=== PATIENT | female | born 1955 | race Caucasian/White ===

== ENCOUNTER 2018-10-11 19:14 | Inpatient (IN) | payer MEDICARE ==
[2018-10-11] MEDS ORDERED: HYDROcodone/Acetaminophen 5/325 mg Tablet PO PRN (20:46)
[2018-10-11] MEDS: Pregabalin 75 MG CAP PO SCH (21:05)
[2018-10-11] MEDS: traZODone HCl 50 MG TAB PO SCH (21:06)
[2018-10-11] MEDS: HYDROcodone/Acetaminophen 5/325 mg Tablet PO PRN (21:06)
[2018-10-11] MEDS: Lorazepam 0.5 MG TAB PO PRN (21:10)
[2018-10-12] MEDS: HYDROcodone/Acetaminophen 5/325 mg Tablet PO PRN ×5 (03:16→22:05)
[2018-10-12] MEDS: Levothyroxine Sodium 75 MCG TAB PO SCH (05:08)
[2018-10-12 05:42] LABS: Band 2 % (5-11); Eosinophils 6 % (0-10); Hemoglobin 7.5 g/dL (12.0-16.0); Hypochromia MODERATE=16-30 cells (100X) (0-5/hpf); Lymphocytes 22 % (21-51); MDiff Complete? YES; Mean Corpuscular Hemoglobin 21.5 pg (27.0-31.0); Mean Corpuscular Volume 71.8 fL (78.0-98.0); Mean Platelet Volume 7.3 fL (7.4-10.4); Microcytosis MODERATE=15-30 cells (100X) (0-5/hpf); Monocytes 6 % (0-10); Neutrophil 64 % (42-75); Platelet Count 197 thou/uL (130-400); Platelet Morphology Comment Appears Adequate; RBC Distribution Width 20.8 % (11.5-14.5); Red Blood Cell (RBC) Count 3.48 mill/uL (4.20-5.40); Target Cells MODERATE= 6-15 cells (100X) (0-1/hpf); White Blood Cell (WBC) Count 4.1 thou/uL (4.8-10.8)
[2018-10-12 05:45] LABS: ALT (SGPT) 20 U/L (8-55); AST (SGOT) 22 U/L (5-34); Albumin 2.4 g/dL (3.4-4.8); Alkaline Phosphatase 139 U/L (40-150); Anion Gap 11 mmol/L (10-20); BUN (Urea Nitrogen) 14 mg/dL (9.8-20.1); Bilirubin, Total 0.5 mg/dL (0.2-1.2); Calc. Creatinine Clearance 98 mL/min (70-130); Calcium 7.8 mg/dL (7.8-10.44); Carbon Dioxide 27 mmol/L (23-31); Chloride 107 mmol/L (98-107); Estimated GFR-MDRD Greater than 90; Globulin 2.5 g/dL (2.4-3.5); Glucose 97 mg/dL (80-115); Potassium 3.4 mmol/L (3.5-5.1); Protein, Total 4.9 g/dL (6.0-8.3); Sodium 142 mmol/L (136-145)
[2018-10-12] MEDS: Furosemide 20 MG TAB PO SCH (08:00)
[2018-10-12] MEDS: DULoxetine 30 MG CAP PO SCH (08:01)
[2018-10-12] MEDS: Pregabalin 75 MG CAP PO SCH ×2 (08:01→20:28)
[2018-10-12] MEDS: Amlodipine 5 MG TAB PO SCH (08:03)
[2018-10-12] MEDS: Lorazepam 0.5 MG TAB PO PRN ×2 (08:05→20:29)
[2018-10-12] MEDS: Nystatin Cream 15 GM TUBE TOP SCH (08:07)
[2018-10-12] MEDS ORDERED: Potassium Chloride 20 MEQ TAB PO SCH (14:15)
--- NOTE | 2018-10-12 16:43 | HP ---
Date of Examination: 10/12/2018 CHIEF COMPLAINT: Recent admission to the hospital for pleural effusion, requiring thoracoscopy and drainage, now with extreme deconditioning for therapy. BRIEF HISTORY: This is a pleasant 63-year-old female, who presented to [facility] with weakness, frequent falls, and shortness of breath. She was diagnosed with a complex right pleural effusion and was transferred from [facility] to [facility]. She underwent thoracoscopy and drainage with not much improvement, but all the workup was negative for infection and her antibiotics were discontinued. She remained profoundly weak and was felt to be a candidate for therapy and so transferred [facility]. Currently, she states that the breathing is improving and she does not seem to be in any distress. She does have some sharp pain with inspiration. She is not on oxygen. PAST MEDICAL HISTORY: 1. Cirrhosis with history of portacaval shunt. 2. Loculated pleural effusion, status post thoracoscopy and drainage. 3. Hypothyroidism. 4. Dyslipidemia. 5. Hypertension. 6. Anemia, likely due to acute blood loss, status post transfusion. PAST SURGICAL HISTORY: 1. Thyroidectomy. 2. Left hip replacement. 3. Lumbar laminectomy. 4. Left shoulder rotator cuff repair. 5. Possible TIPS type of procedure for portal hypertension. 6. Left AKA. ALLERGIES: ASPIRIN, MAXIPIME, MOTRIN, AND PENICILLIN. MEDICATIONS: She has been transferred here on the following medications. 1. [place] 5/325 one to two tabs q.4 p.r.n. 2. DuoNeb 3 mL q.6 p.r.n. 3. Norvasc 2.5 mg daily. 4. Cymbalta 30 mg daily. 5. Lasix 20 mg daily. 6. Levoxyl 75 mcg daily. 7. Ativan 0.5 mg t.i.d. p.r.n. 8. Protonix 40 mg b.i.d. 9. Lyrica 75 mg b.i.d. 10. Desyrel 100 mg at bedtime. FAMILY HISTORY: Positive for CVA in her father and internal bleeding in her mother, unknown etiology. REVIEW OF SYSTEMS: CARDIOVASCULAR: Denies any chest pain, shortness of breath, palpitations, PND, orthopnea, or pedal edema. RESPIRATORY: Denies any chronic cough or expectoration. Does have some pleuritic type chest pain. Denies any hemoptysis. GASTROINTESTINAL: Denies any nausea, vomiting, diarrhea, constipation, hematemesis, melena, or hematochezia. GENITOURINARY: Denies any frequency, urgency, dysuria, or hematuria. CENTRAL NERVOUS SYSTEM: Does have some phantom pain. Generalized weakness. No focal numbness or seizure-like activity. HEENT: Denies any changes with vision, hearing, or swallowing. SKIN: Denies any rash. EXTREMITIES: Phantom pain to the left amputated leg. PHYSICAL EXAMINATION: GENERAL: This is a 63-year-old female, who is resting comfortably in bed, and denies any concerns. VITAL SIGNS: She is afebrile. Heart rate is 69, respirations 18, oxygen saturation 96% on room air, and blood pressure 128/61. CARDIOVASCULAR: S1 and S2 plus. RESPIRATORY: Normal vesicular breath sounds. ABDOMEN: Soft, nontender. Bowel sounds heard in all quadrants. EXTREMITIES: Without cyanosis or clubbing. Left AKA. CENTRAL NERVOUS SYSTEM: Awake and responsive. Generalized weakness. Grossly nonfocal. LABORATORY VALUES: White count is 4.1, H and H are 7.5 and 25. Sodium 142, potassium 3.4, BUN and creatinine are 14 and 0.62. Previous results show hemoglobin of 8.3 on 10/10, 6.8 on 10/09, 7.4 on 10/08, and 7.9 on 10/07. Potassium has been 3.3 on 10/10, 3.2 on 10/09, 3.2 on 10/08, and 3.7 on 10/07. IMPRESSION: 1. Complex pleural effusion, status post thoracoscopy and drainage, not infectious. 2. Acute blood loss requiring blood transfusion. 3. Hypertension. 4. Dyslipidemia. 5. Cirrhosis. 6. Hypokalemia. 7. Left [id number] amputation. 8. Deconditioning. 9. History of gastrointestinal bleed. 10. History of diastolic dysfunction. PLAN: 1. Continue discharge medications. 2. Replace potassium. 3. Heart healthy diet. 4. DVT prophylaxis with PlexiPulses. 5. Decubitus precaution. 6. Stress ulcer prophylaxis. She is on Protonix b.i.d. 7. Monitor hemoglobin. 8. PT/OT eval and treat. 9. Discussed with the patient in detail and all questions answered. Job ID: [id number] [facility]
[2018-10-12] MEDS: traZODone HCl 50 MG TAB PO SCH (20:29)
[2018-10-13] MEDS: HYDROcodone/Acetaminophen 5/325 mg Tablet PO PRN ×5 (02:46→20:55)
[2018-10-13] MEDS: Levothyroxine Sodium 75 MCG TAB PO SCH (05:21)
[2018-10-13 05:40] LABS: #Eosinphils 0.3 thou/uL (0.0-0.7); #Lymphocytes 0.6 thou/uL (1.20-3.40); #Monocytes 0.4 thou/uL (0.11-0.59); %Basophils 1.1 % (0.0-1.0); %Lymphocytes 14.2 % (21.0-51.0); %Neutrophils 68.7 % (42.0-75.0); Hemoglobin 7.4 g/dL (12.0-16.0); Hypochromia MODERATE=16-30 cells (100X) (0-5/hpf); MDiff Complete? YES; Mean Corpuscular HGB CONC 29.8 g/dL (32.0-36.0); Mean Corpuscular Hemoglobin 21.6 pg (27.0-31.0); Mean Corpuscular Volume 72.5 fL (78.0-98.0); Mean Platelet Volume 6.6 fL (7.4-10.4); Microcytosis SLIGHT = 6-15 cells (100X) (0-5/hpf); Ovalocytes SLIGHT = 2-5 cells (100X) (0-1/hpf); Platelet Count 206 thou/uL (130-400); Platelet Morphology Comment Appears Adequate; RBC Distribution Width 21.3 % (11.5-14.5); White Blood Cell (WBC) Count 4.3 thou/uL (4.8-10.8)
[2018-10-13 05:45] LABS: Anion Gap 12 mmol/L (10-20); BUN (Urea Nitrogen) 11 mg/dL (9.8-20.1); Calc. Creatinine Clearance 87 mL/min (70-130); Calcium 7.9 mg/dL (7.8-10.44); Carbon Dioxide 26 mmol/L (23-31); Chloride 106 mmol/L (98-107); Estimated GFR-MDRD 84; Glucose 110 mg/dL (80-115); Potassium 3.6 mmol/L (3.5-5.1); Sodium 140 mmol/L (136-145)
[2018-10-13] MEDS: Nystatin Cream 15 GM TUBE TOP SCH ×3 (06:01→21:02)
[2018-10-13] MEDS: Furosemide 20 MG TAB PO SCH (08:34)
[2018-10-13] MEDS: Lorazepam 0.5 MG TAB PO PRN ×2 (08:34→20:54)
[2018-10-13] MEDS: DULoxetine 30 MG CAP PO SCH (08:35)
[2018-10-13] MEDS: Potassium Chloride 10 MEQ TAB PO SCH (08:35)
[2018-10-13] MEDS: Pregabalin 75 MG CAP PO SCH ×2 (08:35→20:53)
[2018-10-13] MEDS: Amlodipine 5 MG TAB PO SCH (08:36)
--- NOTE | 2018-10-13 14:29 | PRG ---
DATE OF SERVICE: 10/13/2018 SUBJECTIVE: Ms. Lewis is up in her chair and is waiting on therapy. She denies any concerns or questions. No family at bedside. OBJECTIVE: VITAL SIGNS: She is afebrile, heart rate 74, respirations 16, oxygen saturation 96% on room air, and blood pressure 137/62. CARDIOVASCULAR: S1 and S2 plus. RESPIRATORY: Normal vesicular breath sounds. ABDOMEN: Soft, nontender. Bowel sounds heard in all quadrants. EXTREMITIES: Without cyanosis, clubbing. Left AKA. CENTRAL NERVOUS SYSTEM: Awake and responsive. Generalized weakness. LABORATORY VALUES: White count is 4.3, H and H are 7.4 and 24.6, pretty much the same. Sodium 140, potassium 3.6, BUN and creatinine are 11 and 0.7. IMPRESSION: 1. Resolved hypokalemia. 2. Anemia, stable. 3. Pleural effusion, status post thoracoscopy and drainage. 4. Cirrhosis. 5. Dyslipidemia. 6. Hypertension. PLAN: 1. Continue current medications. 2. Heart healthy diet. 3. Monitor for any signs or symptoms of bleeding. 4. Physical therapy. 5. Routine laboratory values. 6. Monitor respiratory status. 7. Discussed with the patient in detail. All questions were answered. Job ID: [id number]
[2018-10-13] MEDS: traZODone HCl 50 MG TAB PO SCH (20:56)
[2018-10-14] MEDS: HYDROcodone/Acetaminophen 5/325 mg Tablet PO PRN ×4 (03:19→19:36)
[2018-10-14] MEDS: Levothyroxine Sodium 75 MCG TAB PO SCH (06:03)
[2018-10-14] MEDS: DULoxetine 30 MG CAP PO SCH (08:18)
[2018-10-14] MEDS: Pregabalin 75 MG CAP PO SCH ×2 (08:18→21:12)
[2018-10-14] MEDS: Furosemide 20 MG TAB PO SCH (08:18)
[2018-10-14] MEDS: Potassium Chloride 10 MEQ TAB PO SCH (08:18)
[2018-10-14] MEDS: Amlodipine 5 MG TAB PO SCH (08:18)
[2018-10-14] MEDS: Nystatin Cream 15 GM TUBE TOP SCH ×2 (08:24→21:11)
--- NOTE | 2018-10-14 10:00 | PRG ---
DATE OF SERVICE: 10/14/2018 SUBJECTIVE: Ms. Lewis is doing the same. She denies any concerns. She still continues to have some pain in the left chest wall. She states that she was unable to wear her prosthesis. 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 We will check with occupational therapy and see if they can provide her one. OBJECTIVE: VITAL SIGNS: She is afebrile. Heart rate 68, respirations 16, oxygen saturation 96% on room air, and blood pressure 123/55. CARDIOVASCULAR SYSTEM: S1 and S2 plus. RESPIRATORY SYSTEM: Normal vesicular breath sounds. ABDOMEN: Soft and nontender. Bowel sounds heard in all quadrants. EXTREMITIES: Without cyanosis or clubbing. Left AKA. CENTRAL NERVOUS SYSTEM: Awake and responsive. Generalized weakness. IMPRESSION: 1. Dyslipidemia. 2. Hypertension. 3. Cirrhosis. 4. Pleural effusion, status post thoracoscopy and drainage. 5. Anemia, due to chronic disease. 6. Deconditioning. 7. Status post left above-knee amputation. PLAN: 1. Continue current medications. 2. Heart healthy diet. 3. PT/OT eval and treat. 4. DVT prophylaxis with PlexiPulses. 5. Decubitus precautions. 6. Routine laboratory values. 7. Discussed with the patient in detail. All questions answered. Job ID: [id number]
[2018-10-14] MEDS: traZODone HCl 50 MG TAB PO SCH (21:12)
[2018-10-14] MEDS: Lorazepam 0.5 MG TAB PO PRN (21:13)
[2018-10-15] MEDS: Levothyroxine Sodium 75 MCG TAB PO SCH (05:25)
[2018-10-15] MEDS: HYDROcodone/Acetaminophen 5/325 mg Tablet PO PRN ×3 (05:25→18:17)
[2018-10-15 05:50] LABS: Anion Gap 14 mmol/L (10-20); BUN (Urea Nitrogen) 11 mg/dL (9.8-20.1); Calc. Creatinine Clearance 91 mL/min (70-130); Calcium 8.2 mg/dL (7.8-10.44); Carbon Dioxide 25 mmol/L (23-31); Chloride 106 mmol/L (98-107); Estimated GFR-MDRD 89; Glucose 93 mg/dL (80-115); Potassium 3.9 mmol/L (3.5-5.1); Sodium 141 mmol/L (136-145)
[2018-10-15 05:59] LABS: #Eosinphils 0.3 thou/uL (0.0-0.7); #Lymphocytes 0.7 thou/uL (1.20-3.40); #Monocytes 0.4 thou/uL (0.11-0.59); #Neutrophils 2.3 thou/uL (1.40-6.50); %Basophils 1.1 % (0.0-1.0); %Lymphocytes 17.8 % (21.0-51.0); %Monocytes 9.5 % (0.0-10.0); %Neutrophils 63.7 % (42.0-75.0); Elliptocytes SLIGHT = 2-5 cells (100X) (0-1/hpf); Hemoglobin 7.8 g/dL (12.0-16.0); Hypochromia MODERATE=16-30 cells (100X) (0-5/hpf); MDiff Complete? YES; Mean Corpuscular HGB CONC 29.9 g/dL (32.0-36.0); Mean Corpuscular Hemoglobin 21.6 pg (27.0-31.0); Mean Corpuscular Volume 72.3 fL (78.0-98.0); Mean Platelet Volume 6.9 fL (7.4-10.4); Microcytosis SLIGHT = 6-15 cells (100X) (0-5/hpf); Platelet Count 216 thou/uL (130-400); Platelet Morphology Comment Appears Adequate; RBC Distribution Width 20.9 % (11.5-14.5); Red Blood Cell (RBC) Count 3.63 mill/uL (4.20-5.40); White Blood Cell (WBC) Count 3.6 thou/uL (4.8-10.8)
[2018-10-15] MEDS: Amlodipine 5 MG TAB PO SCH (08:06)
[2018-10-15] MEDS: DULoxetine 30 MG CAP PO SCH (08:07)
[2018-10-15] MEDS: Potassium Chloride 10 MEQ TAB PO SCH (08:07)
[2018-10-15] MEDS: Pregabalin 75 MG CAP PO SCH ×2 (08:07→20:49)
[2018-10-15] MEDS: Nystatin Cream 15 GM TUBE TOP SCH ×2 (08:08→20:52)
[2018-10-15] MEDS: Furosemide 20 MG TAB PO SCH (08:08)
--- NOTE | 2018-10-15 15:04 | PRG ---
DATE OF SERVICE: 10/15/2018 SUBJECTIVE: Ms. Lewis is doing well. She was noted to have episodes of confusion, and problems with coordination yesterday and nursing felt like that was due to narcotic overdose. The patient apparently wants to be woken up to be given her pain medicines every 4 hours. I advised nursing to change it every 6 and monitor her closely and even it is 6 hours, if they were noticing signs of confusion, then to not give her the pain medicine. I had a long discussion with the patient and explained my rationale. She was not happy, but she nodded understanding. No family at bedside. OBJECTIVE: VITAL SIGNS: She is afebrile, heart rate 85, respirations 18, and oxygen saturation 92% on room air. CARDIOVASCULAR SYSTEM: S1-S2 plus. RESPIRATORY SYSTEM: Normal vesicular breath sounds. ABDOMEN: Soft and nontender. Bowel sounds heard in all quadrants. EXTREMITIES: Without cyanosis or clubbing. Left AKA. CENTRAL NERVOUS SYSTEM: Awake and responsive. Generalized weakness. No asterixis. LABORATORY VALUES: Show a normal ammonia level. Her white count is 3.6; H and H are 7.8 and 26.2, improving. Sodium 141, potassium 3.9, and BUN and creatinine are 11 and 0.67. IMPRESSION: 1. Pleural effusion, status post thoracoscopy and drainage. 2. Chronic pain, but with evidence of buildup of narcotics in her system, so drug frequency has been reduced to q.6. 3. Dyslipidemia. 4. Hypertension. 5. History of cirrhosis. 6. Anemia of chronic disease. 7. Deconditioning. 8. Status post left above-knee amputation. PLAN: 1. Continue current medications. 2. Heart healthy diet. 3. PT and OT eval and treat. 4. DVT prophylaxis with PlexiPulses. 5. Monitor cognition and neuro status and hold narcotics if there are any signs of narcotic buildup. 6. Discussed with the patient and nursing. Job ID: [id number]
[2018-10-15] MEDS: traZODone HCl 50 MG TAB PO SCH (20:49)
[2018-10-16] MEDS: HYDROcodone/Acetaminophen 5/325 mg Tablet PO PRN ×4 (01:05→22:04)
[2018-10-16] MEDS: Levothyroxine Sodium 75 MCG TAB PO SCH (05:44)
[2018-10-16 06:09] VITALS: BMI 241799.2
[2018-10-16] MEDS: Nystatin Cream 15 GM TUBE TOP SCH ×2 (08:16→20:22)
[2018-10-16] MEDS: Pregabalin 75 MG CAP PO SCH ×2 (08:17→20:19)
[2018-10-16] MEDS: DULoxetine 30 MG CAP PO SCH (08:18)
[2018-10-16] MEDS: Furosemide 20 MG TAB PO SCH (08:18)
[2018-10-16] MEDS: Potassium Chloride 10 MEQ TAB PO SCH (08:18)
[2018-10-16] MEDS: Amlodipine 5 MG TAB PO SCH (08:18)
[2018-10-16] MEDS: Lorazepam 0.5 MG TAB PO PRN (10:24)
--- NOTE | 2018-10-16 15:59 | PRG ---
DATE OF SERVICE: 10/16/2018 SUBJECTIVE: Ms. Lewis is getting used to the q.6 hours [place]. She apparently is functioning better, and she states that she actually is not getting as confused or somnolent. No family at bedside. OBJECTIVE: VITAL SIGNS: She is afebrile, heart rate 72, respirations 18, oxygen saturation 95% on room air, and blood pressure 146/63. CARDIOVASCULAR SYSTEM: S1 and S2 plus. RESPIRATORY SYSTEM: Normal vesicular breath sounds. ABDOMEN: Soft, nontender. Bowel sounds heard in all quadrants. EXTREMITIES: Without cyanosis or clubbing. Left AKA. CENTRAL NERVOUS SYSTEM: Awake and responsive. Generalized weakness. IMPRESSION: 1. Pleural effusion, status post thoracoscopy and drainage. 2. Status post left hamvq-uwv-mmil amputation. 3. Hypothyroidism. 4. Dyslipidemia. 5. Hypertension. 6. Chronic pain. 7. History of cirrhosis. PLAN: 1. Continue current medications. 2. Nutritional support. 3. Pain control. 4. DVT and stress ulcer prophylaxis. 5. Decubitus precautions. 6. Physical therapy. 7. Routine laboratory values. Job ID: [id number]
[2018-10-16] MEDS: traZODone HCl 50 MG TAB PO SCH (20:19)
[2018-10-17] MEDS: Levothyroxine Sodium 75 MCG TAB PO SCH (05:26)
[2018-10-17] MEDS: HYDROcodone/Acetaminophen 5/325 mg Tablet PO PRN ×3 (05:27→18:01)
[2018-10-17] MEDS: Furosemide 20 MG TAB PO SCH (08:16)
[2018-10-17] MEDS: Amlodipine 5 MG TAB PO SCH (08:17)
[2018-10-17] MEDS: Potassium Chloride 10 MEQ TAB PO SCH (08:17)
[2018-10-17] MEDS: DULoxetine 30 MG CAP PO SCH (08:17)
[2018-10-17] MEDS: Pregabalin 75 MG CAP PO SCH ×2 (08:18→20:32)
[2018-10-17] MEDS: Nystatin Cream 15 GM TUBE TOP SCH ×2 (08:18→20:31)
--- NOTE | 2018-10-17 13:53 | PRG ---
DATE OF SERVICE: 10/17/2018 HISTORY OF PRESENT ILLNESS: Ms. Lewis is doing well. Denies any complaints. Resting comfortably. Still complaining of some sharp, stabbing pain in her chest wall area. She is tolerating the [place] every 6 hours. OBJECTIVE: VITAL SIGNS: She is afebrile. Heart rate 62, respirations 18, oxygen saturation 94% on room air, and blood pressure 146/62. CARDIOVASCULAR: S1 and S2 plus. RESPIRATORY: Normal vesicular breath sounds. ABDOMEN: Soft, nontender. Bowel sounds heard in all quadrants. EXTREMITIES: Without cyanosis or clubbing. Left AKA. IMPRESSION: 1. Pleural effusion, status post thoracoscopy and drainage. 2. History of left above-knee amputation. 3. Hypothyroidism. 4. Dyslipidemia. 5. Hypertension. 6. Chronic pain. PLAN: 1. Trial of meloxicam 7.5 mg daily for pleurisy. 2. Continue other medications. 3. Nutritional support. 4. DVT and stress ulcer prophylaxis. 5. Decubitus precautions. 6. Routine laboratory values. 7. Continue physical therapy. 8. Discussed with the patient and nursing. Job ID: [id number]
[2018-10-17] MEDS: traZODone HCl 50 MG TAB PO SCH (20:32)
[2018-10-17] MEDS: Nystatin Powder 15 GM BOT TOP SCH (20:33)
[2018-10-17] MEDS: Lorazepam 0.5 MG TAB PO PRN (22:15)
[2018-10-18] MEDS: HYDROcodone/Acetaminophen 5/325 mg Tablet PO PRN ×4 (01:15→20:23)
[2018-10-18] MEDS: Levothyroxine Sodium 75 MCG TAB PO SCH (05:25)
[2018-10-18] MEDS: Potassium Chloride 10 MEQ TAB PO SCH (07:43)
[2018-10-18] MEDS: Furosemide 20 MG TAB PO SCH (07:45)
[2018-10-18] MEDS: Amlodipine 5 MG TAB PO SCH (09:13)
[2018-10-18] MEDS: DULoxetine 30 MG CAP PO SCH (09:13)
[2018-10-18] MEDS: Pregabalin 75 MG CAP PO SCH ×2 (09:14→20:21)
[2018-10-18] MEDS: Nystatin Powder 15 GM BOT TOP SCH ×2 (09:14→20:20)
[2018-10-18] MEDS: Nystatin Cream 15 GM TUBE TOP SCH ×2 (09:20→20:20)
[2018-10-18] MEDS: Lorazepam 0.5 MG TAB PO PRN (12:07)
--- NOTE | 2018-10-18 13:19 | PRG ---
DATE OF SERVICE: 10/18/2018 SUBJECTIVE: Ms. Lewis is doing the same. Denies any complaints. Resting comfortably in bed, just finished her lunch. Nystatin powder seems to be helping. Discussed with nursing. OBJECTIVE: VITAL SIGNS: She is afebrile, heart rate 71, respirations 16, oxygen saturation 95% on room air, and blood pressure 129/60. CARDIOVASCULAR SYSTEM: S1 and S2 plus. RESPIRATORY SYSTEM: Normal vesicular breath sounds. ABDOMEN: Soft, nontender. Bowel sounds heard in all quadrants. EXTREMITIES: Left AKA. CENTRAL NERVOUS SYSTEM: Awake and responsive. Generalized weakness. IMPRESSION: 1. Pleural effusion, status post thoracoscopy and drainage. 2. Hypothyroidism. 3. Dyslipidemia. 4. Hypertension. 5. Chronic pain. 6. History of left above-knee amputation. PLAN: 1. I did not start her on meloxicam yesterday since she is apparently allergic to all NSAIDs, and it causes GI bleed. 2. Continue current medications. 3. Continue PT and OT. 4. Nutritional support. 5. Routine laboratory values. 6. The patient states that she has [facility] and they do therapy at home, so we will wait for therapy to tell me she is stable for discharge and will also get Case Management involved. Job ID: [id number]
[2018-10-18] MEDS: traZODone HCl 50 MG TAB PO SCH (20:20)
[2018-10-19] MEDS: Lorazepam 0.5 MG TAB PO PRN ×2 (00:45→08:30)
[2018-10-19] MEDS: Levothyroxine Sodium 75 MCG TAB PO SCH (05:45)
[2018-10-19] MEDS: HYDROcodone/Acetaminophen 5/325 mg Tablet PO PRN ×2 (05:45→15:39)
[2018-10-19 07:58] VITALS: BP 193/74; TEMP 98.5
[2018-10-19] MEDS: Furosemide 20 MG TAB PO SCH (08:21)
[2018-10-19] MEDS: Pregabalin 75 MG CAP PO SCH (08:21)
[2018-10-19] MEDS: DULoxetine 30 MG CAP PO SCH (08:22)
[2018-10-19] MEDS: Nystatin Cream 15 GM TUBE TOP SCH (08:22)
[2018-10-19] MEDS: Potassium Chloride 10 MEQ TAB PO SCH (08:22)
[2018-10-19] MEDS: Nystatin Powder 15 GM BOT TOP SCH (08:22)
[2018-10-19] MEDS: Amlodipine 5 MG TAB PO SCH (08:22)
--- NOTE | 2018-10-20 10:43 | DIS ---
DATE OF ADMISSION: 10/11/2018 DATE OF DISCHARGE: 10/19/2018 PRINCIPAL DIAGNOSES: 1. Pleural effusion status post thoracoscopy and drainage. 2. Hypothyroidism. 3. Dyslipidemia. 4. Hypertension. 5. Possible cirrhosis. 6. Anemia due to acute blood loss, status post transfusion, stable since admission here. COMPLICATIONS: None. ADVERSE REACTIONS: None. PROCEDURES: None. CONSULTATIONS: Physical Therapy and Occupational Therapy. HOSPITAL COURSE: The patient was admitted as a transfer from [facility], where she was admitted with frequent falls, weakness, and shortness of breath. She was diagnosed with a complex right pleural effusion and underwent thoracoscopy and drainage without much improvement. Workup was negative for infection. Her antibiotics were discontinued. She was felt to be weak and a candidate for therapy and so transferred here. Here, she has been participating with therapy and has been deemed stable for discharge to home with home health. She does have a prosthesis for her left AKA and she states that she has used [facility] in the past and they apparently are still continuing to see her. She is being discharged home with home health or PCP to follow. She was started on nystatin powder for tinea cruris, which is helping, so I will send the prescription in to [facility] of [facility] choice. Her [place] tablets was reduced to q.6 hours as she was getting more somnolent and confused and she has been doing well on the q.6 p.r.n. PHYSICAL EXAMINATION: VITAL SIGNS: On the day of discharge, she is afebrile, heart rate 76, respirations 16, and oxygen saturation 94% on room air. Blood pressure this morning was 193/74, but I had nurses recheck it and it was 140/70. CARDIOVASCULAR SYSTEM: S1 and S2 plus. RESPIRATORY SYSTEM: Normal vesicular breath sounds. ABDOMEN: Soft and nontender. Bowel sounds heard in all quadrants. EXTREMITIES: Without cyanosis or clubbing. Left AKA. CENTRAL NERVOUS SYSTEM: Awake and responsive. Generalized weakness. Grossly nonfocal. DISCHARGE MEDICATIONS: 1. [place] 5/325 two tablets q.6 p.r.n. severe pain 6 to 10. 2. [place] 5/325 one tablet t.i.d. p.r.n. for [id number] pain 1 to 5. 3. DuoNeb q.6 p.r.n. 4. Norvasc 2.5 mg daily. 5. Cymbalta 30 mg daily. 6. Lasix 20 mg daily. 7. Synthroid 75 mcg daily. 8. Ativan 0.5 mg t.i.d. p.r.n. anxiety. 9. Nystatin powder b.i.d. to rash. 10. Protonix 40 mg t.i.d. 11. Potassium 10 mEq daily. 12. Protonix 40 mg b.i.d. 13. Lyrica 75 mg b.i.d. 14. Trazodone 100 mg at bedtime. DISCHARGE INSTRUCTIONS: Outpatient followup with PCP in 3 to 5 days. She is to call us with any questions or concerns. No family at bedside. For full details, please see chart. Total time spent on this discharge including sending in prescriptions and coordinating care was 35 minutes. Job ID: [id number]
== END 2018-10-19 16:19 | disposition home health service (06) | DRG 948 ==
LOC: NAV ACUTE 19:14
PROVIDERS: ADMIT Internal Medicine; ATTEND Internal Medicine
DX: R53.1 Weakness (principal); D62 Acute posthemorrhagic anemia; E03.9 Hypothyroidism, unspecified; E78.5 Hyperlipidemia, unspecified; I10 Essential (primary) hypertension; Z96.642 Presence of left artificial hip joint; K74.60 Unspecified cirrhosis of liver; E87.6 Hypokalemia; R53.81 Other malaise; G89.29 Other chronic pain; T40.605A Adverse effect of unspecified narcotics, initial encounter; Z90.89 Acquired absence of other organs; Z89.612 Acquired absence of left leg above knee; Z88.8 Allergy status to other drugs, medicaments and biological substances; Z88.0 Allergy status to penicillin; Z79.899 Other long term (current) drug therapy
CPT/HCPCS: 36415; 80048; 80053; 82140; 85025